=== PATIENT | male | born 1980 ===

== ENCOUNTER 2016-12-24 17:32 | Emergency (ER) | payer MEDICAID, OTHER ==
[2016-12-24 17:32] VITALS: BMI 55.3
[2016-12-24 18:17] VITALS: BP 112/69; PULSE 89; RESP 20; TEMP 98.1; O2SAT 97
--- NOTE | 2016-12-24 19:44 | C.PDOC ---
History Of Present Illness Pt is here for detox from Heroin. Time Seen by Provider: 12/24/16 19:17 Chief Complaint (Nursing): Substance Abuse History Per: Patient Onset/Duration Of Symptoms: Days Current Symptoms Are (Timing): Still Present Suicide/Self Injury Attempted (Context): None Modifying Factor(s): Alcohol, Narcotics Severity: Moderate Associated Symptoms: denies: Suicidal Thoughts, Suicidal Plan Additional History Per: Prior Records Past Medical History Reviewed: Historical Data, Nursing Documentation, Vital Signs Vital Signs: Last Vital Signs Temp 98.1 F 12/24/16 18:14 Pulse 89 12/24/16 18:14 Resp 20 12/24/16 18:14 BP 112/69 12/24/16 18:14 Pulse Ox 97 12/24/16 18:14 - Medical History PMH: Anxiety, Bipolar Disorder, Hepatitis (C) Family History: States: Unknown Family Hx - Social History Hx Tobacco Use: Yes Hx Alcohol Use: Yes Hx Substance Use: Yes (IVDU heroin) - Immunization History Hx Tetanus Toxoid Vaccination: No Hx Influenza Vaccination: No Hx Pneumococcal Vaccination: No Review Of Systems Except As Marked, All Systems Reviewed And Found Negative. Constitutional: Negative for: Fever Cardiovascular: Negative for: Chest Pain Respiratory: Negative for: Shortness of Breath Gastrointestinal: Negative for: Vomiting, Abdominal Pain Musculoskeletal: Negative for: Neck Pain Neurological: Negative for: Weakness, Numbness, Seizures Psych: Negative for: Psychosis Physical Exam - Physical Exam Appears: Non-toxic, No Acute Distress Skin: Normal Color, Warm, Dry Head: Atraumatic, Normacephalic Eye(s): bilateral: PERRL, EOMI Neck: Normal ROM, No Midline Cervical Tenderness, No Step Off Deformity, Supple Cardiovascular: Rhythm Regular Respiratory: Normal Breath Sounds, No Accessory Muscle Use Gastrointestinal/Abdominal: Soft, No Tenderness Extremity: Normal ROM, Other (Track littlejohn on arms) Neurological/Psych: Oriented x3, Normal Motor, Normal Sensation Gait: Steady ED Course And Treatment O2 Sat by Pulse Oximetry: 97 Pulse Ox Interpretation: Normal Progress Note: There are no available detox beds tonight. Pt was given a list of available detox programs and a number to call back our program for bed availability. Disposition Counseled Patient/Family Regarding: Diagnosis, Need For Followup, Smoking Cessation - Disposition Disposition: HOME/ ROUTINE Disposition Time: 19:43 Condition: STABLE Additional Instructions: Follow up with your doctor and with a detox program. Return to the ER if you develop worsening of symptoms or if you have any other concerns. Instructions: Polysubstance Abuse (ED) - Clinical Impression Clinical Impression: Polysubstance abuse
== END 2016-12-24 20:09 | disposition home or self-care (01) ==
LOC: C.ER 17:32
DX: F19.10 Other psychoactive substance abuse, uncomplicated (principal)